=== PATIENT | male | born 1960 | race African-American/Black ===

== ENCOUNTER 2022-11-23 12:27 | Inpatient (IN) | payer OTHER ==
[2022-11-23 13:36] VITALS: BMI 24.5
[2022-11-23] MEDS ORDERED: BENZOCAINE/MENTHOL (CHLORASEPTIC ) LOZENGE MM PRN (14:29)
[2022-11-23] MEDS ORDERED: LORazepam 1 MG TABLET PO PRN (14:29)
[2022-11-23] MEDS ORDERED: NALOXONE HCL (KLOXXADO) 8 MG SPRAY NS PRN (14:29)
[2022-11-23] MEDS ORDERED: BENZONATATE 200 MG CAPSULE PO PRN (14:29)
[2022-11-23] MEDS ORDERED: BISMUTH SUBSALICYLATE 524 MG/30 ML PO PRN (14:29)
[2022-11-23] MEDS ORDERED: ONDANSETRON *ODT* 4 MG TABLET SL PRN (14:29)
[2022-11-23] MEDS ORDERED: POLYETHYLENE GLYCOL (HEALTHYLAX) 3350 17 GM PACKET PO PRN (14:29)
[2022-11-23] MEDS ORDERED: guaiFENesin 600 MG TABLET.ER (FP) PO PRN (14:29)
[2022-11-23] MEDS ORDERED: MAG HYDROX/AL HYDROX/SIMETH 30 ML UNIT-DOSE CUP PO PRN (14:29)
[2022-11-23] MEDS ORDERED: MAGNESIUM HYDROX 2400MG/30ML ORAL SUSPENSION 30 ML CUP PO PRN (14:29)
[2022-11-23] MEDS ORDERED: DICYCLOMINE HCL 10 MG CAPSULE PO PRN (14:29)
[2022-11-23] MEDS ORDERED: NALOXONE HCL 0.4 MG/ML VIAL IM PRN (14:29)
[2022-11-23] MEDS ORDERED: ACETAMINOPHEN 325 MG TABLET (FP) PO PRN (14:29)
[2022-11-23] MEDS ORDERED: IBUPROFEN 600 MG TABLET (FP) PO PRN (14:29)
[2022-11-23] MEDS ORDERED: LOPERAMIDE HCL 2 MG CAPSULE PO PRN (14:29)
[2022-11-23] MEDS ORDERED: IBUPROFEN 400 MG TABLET (FP) PO PRN (14:29)
[2022-11-23] MEDS: METHOCARBAMOL 500 MG TABLET PO PRN (15:29)
[2022-11-23] MEDS: NICOTINE POLACRILEX 2 MG GUM BUC PRN (15:29)
[2022-11-23] MEDS ORDERED: NICOTINE POLACRILEX 2 MG GUM ONE (15:33)
[2022-11-23] MEDS: LORazepam 2 MG TABLET PO SCH ×2 (17:31→22:23)
[2022-11-23] MEDS ORDERED: COLLOIDAL OATMEAL 1 BAR EACH TP PRN (18:57)
[2022-11-23] MEDS: BACITRACIN 0.9 GM PACKET TP SCH ×2 (19:45→22:23)
[2022-11-23] MEDS: MELATONIN 5 MG TABLETS PO SCH (22:23)
[2022-11-23] MEDS: THIAMINE HCL 100 MG TABLET (FP) PO SCH (22:23)
[2022-11-23] MEDS: hydrOXYzine PAMOATE 25 MG CAPSULE (FP) PO PRN (22:25)
[2022-11-24] MEDS: LORazepam 2 MG TABLET PO SCH ×4 (05:36→22:08)
[2022-11-24] MEDS: BACITRACIN 0.9 GM PACKET TP SCH ×2 (10:18→22:08)
[2022-11-24] MEDS: TOLNAFTATE 1% CREAM 15 GM TUBE TP SCH ×2 (10:18→22:08)
[2022-11-24] MEDS: NICOTINE 7 MG/24 HOURS TOPICAL PATCH TD SCH (10:20)
[2022-11-24] MEDS: PRENATAL VITAMINS W/ FOLIC ACID TABLET (FP) PO SCH (10:20)
[2022-11-24 11:54] LABS: HEMATOCRIT 40.1 % (35.4-49); HEMOGLOBIN 13.5 GM/dL (11.7-16.9); MCH 33.1 pg (25.7-33.7); MCHC 33.8 g/dl (32.0-35.9); MEAN CELL VOLUME 97.9 fl (80-96); MEAN PLT VOLUME 8.6 fl (7.5-11.1); PLATELET COUNT 131 10^3/uL (134-434); WHITE BLOOD COUNT 3.9 K/mm3 (4.0-10.0)
[2022-11-24 11:59] LABS: POTASSIUM 4.3 mmol/L (3.5-5.1)
[2022-11-24 12:04] LABS: CALCIUM 8.7 mg/dL (8.5-10.1)
[2022-11-24 12:05] LABS: ALBUMIN 3.2 g/dl (3.4-5.0); BLOOD UREA NITROGEN 11.3 mg/dL (7-18)
[2022-11-24 12:10] LABS: BILIRUBIN,TOTAL 0.6 mg/dL (0.2-1); TOT PROT 6.1 g/dl (6.4-8.2)
[2022-11-24] MEDS: NICOTINE POLACRILEX 2 MG GUM BUC PRN (17:33)
[2022-11-24] MEDS: hydrOXYzine PAMOATE 25 MG CAPSULE (FP) PO PRN (17:34)
[2022-11-24] MEDS: METHOCARBAMOL 500 MG TABLET PO PRN (22:08)
[2022-11-24] MEDS: THIAMINE HCL 100 MG TABLET (FP) PO SCH (22:08)
[2022-11-24] MEDS: MELATONIN 5 MG TABLETS PO SCH (22:08)
[2022-11-25] MEDS: LORazepam 1 MG TABLET PO SCH ×4 (05:27→22:33)
[2022-11-25] MEDS: BACITRACIN 0.9 GM PACKET TP SCH ×2 (10:07→22:32)
[2022-11-25] MEDS: TOLNAFTATE 1% CREAM 15 GM TUBE TP SCH ×2 (10:07→22:32)
[2022-11-25] MEDS: PRENATAL VITAMINS W/ FOLIC ACID TABLET (FP) PO SCH (10:08)
[2022-11-25] MEDS: NICOTINE 7 MG/24 HOURS TOPICAL PATCH TD SCH (10:10)
[2022-11-25] MEDS: CARBAMIDE PEROXIDE 6.5% OTIC 15 ML BOTTLE AS SCH ×2 (14:46→21:25)
[2022-11-25] MEDS: METHOCARBAMOL 500 MG TABLET PO PRN (17:45)
[2022-11-25] MEDS: hydrOXYzine PAMOATE 25 MG CAPSULE (FP) PO PRN (17:45)
[2022-11-25] MEDS: MELATONIN 5 MG TABLETS PO SCH (22:32)
[2022-11-25] MEDS: THIAMINE HCL 100 MG TABLET (FP) PO SCH (22:33)
[2022-11-25] MEDS: GABAPENTIN 400 MG CAPSULE PO SCH (22:33)
[2022-11-25] MEDS: FLUTICASONE/UMECLIDIN/VILANTER(200-62.5-25 TRELEGY ELLIPTA) INAHLER IH SCH (22:57)
[2022-11-26] MEDS ORDERED: LORazepam 0.5 MG TABLET PO PRN
[2022-11-26] MEDS: LORazepam 0.5 MG TABLET PO SCH ×4 (05:24→22:07)
[2022-11-26] MEDS: NICOTINE 7 MG/24 HOURS TOPICAL PATCH TD SCH (10:17)
[2022-11-26] MEDS: PRENATAL VITAMINS W/ FOLIC ACID TABLET (FP) PO SCH (10:17)
[2022-11-26] MEDS: TOLNAFTATE 1% CREAM 15 GM TUBE TP SCH ×2 (10:17→22:06)
[2022-11-26] MEDS: CARBAMIDE PEROXIDE 6.5% OTIC 15 ML BOTTLE AS SCH ×2 (10:18→22:07)
[2022-11-26] MEDS: FLUTICASONE/UMECLIDIN/VILANTER(200-62.5-25 TRELEGY ELLIPTA) INAHLER IH SCH ×2 (10:18→22:06)
[2022-11-26] MEDS: BACITRACIN 0.9 GM PACKET TP SCH ×2 (10:18→22:05)
[2022-11-26] MEDS: GABAPENTIN 400 MG CAPSULE PO SCH ×2 (10:19→22:06)
[2022-11-26] MEDS: MELATONIN 5 MG TABLETS PO SCH (22:06)
[2022-11-26] MEDS: THIAMINE HCL 100 MG TABLET (FP) PO SCH (22:06)
[2022-11-27] MEDS ORDERED: LORazepam 0.5 MG TABLET PO ONE (05:00)
[2022-11-27 09:56] VITALS: BP 112/67; PULSE 74; RESP 18; TEMP 97.5
[2022-11-27] MEDS: PRENATAL VITAMINS W/ FOLIC ACID TABLET (FP) PO SCH (10:17)
[2022-11-27] MEDS: FLUTICASONE/UMECLIDIN/VILANTER(200-62.5-25 TRELEGY ELLIPTA) INAHLER IH SCH (10:18)
[2022-11-27] MEDS: TOLNAFTATE 1% CREAM 15 GM TUBE TP SCH (10:18)
[2022-11-27] MEDS: CARBAMIDE PEROXIDE 6.5% OTIC 15 ML BOTTLE AS SCH (10:18)
[2022-11-27] MEDS: GABAPENTIN 400 MG CAPSULE PO SCH (10:18)
[2022-11-27] MEDS: BACITRACIN 0.9 GM PACKET TP SCH (10:18)
[2022-11-27] MEDS: NICOTINE 7 MG/24 HOURS TOPICAL PATCH TD SCH (10:19)
== END 2022-11-27 10:49 | disposition home or self-care (01) | DRG 775 ==
LOC: YASAS 12:27 → Y3N 15:33
PROVIDERS: ADMIT Allergy & Immunology; ATTEND Surgery
PROC: HZ2ZZZZ Detoxification Services for Substance Abuse Treatment (ICD-10-PCS; principal; 2022-11-23)
DX: F10.230 Alcohol dependence with withdrawal, uncomplicated (principal); F17.210 Nicotine dependence, cigarettes, uncomplicated; J44.9 Chronic obstructive pulmonary disease, unspecified; G89.4 Chronic pain syndrome; M54.50 Low back pain, unspecified; G89.29 Other chronic pain; Z99.89 Dependence on other enabling machines and devices; Z59.01 Sheltered homelessness
CPT/HCPCS: 36415; 80053; 83036; 85027; 86780; 87635